=== PATIENT | male | born 1995 | race African-American/Black ===

== ENCOUNTER 2021-01-16 01:25 | Emergency (ER) | payer OTHER ==
[~2021-01-16] VITALS: Ht 172.7 cm; Wt 86.2 kg
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
--- NOTE | 2021-01-16 01:36 | NUR ---
at the bedside for eval.
--- NOTE | 2021-01-16 01:38 | NUR ---
EMT AT BEDSIDE FOR CLEANING
--- NOTE | 2021-01-16 01:40 | NUR ---
xray at bedside
[2021-01-16] MEDS ORDERED: TDAP [DIPH/PERTUSSIS/TET] 0.5 ML VIAL IM ONE ×2 (01:52→02:00)
--- NOTE | 2021-01-16 02:25 | NUR ---
at bedside for procedure
[2021-01-16] MEDS ORDERED: LIDOCAINE 0.5% HCL 50 ML VIAL ONE (02:26)
[2021-01-16] MEDS ORDERED: CEPH500C2 PO (02:36)
--- NOTE | 2021-01-16 02:37 | NUR ---
Patient discharged to home in stable condition. Written and verbal after care instructions given. Patient verbalizes understanding of instruction. Pt ambulatory with a steady gait
[2021-01-16 02:41] VITALS: BP 134/82
== END 2021-01-16 02:37 | disposition home or self-care (01) ==
LOC: ER 01:33
DX: S81.011A Laceration without foreign body, right knee, initial encounter (principal); F41.9 Anxiety disorder, unspecified; V09.9XXA Pedestrian injured in unspecified transport accident, initial encounter; Y93.89 Activity, other specified; Y92.89 Other specified places as the place of occurrence of the external cause; Y99.8 Other external cause status
CPT/HCPCS: 12002; 73564; 90471; 90715; 99283; J3490

== ENCOUNTER 2022-02-05 13:43 | Emergency (ER) | payer OTHER ==
[~2022-02-05] VITALS: Ht 172.7 cm; Wt 95.3 kg
[~2022-02-05 13:43] MED LIST: CEPH500C2 PO
[2022-02-05 13:49] VITALS: BP 120/63
--- NOTE | 2022-02-05 14:21 | NUR ---
SWAB FOR COVID19 SENT
[2022-02-05] MEDS ORDERED: TDAP [DIPH/PERTUSSIS/TET] 0.5 ML VIAL IM ONE ×2 (14:29→14:30)
[2022-02-05] MEDS ORDERED: LIDOCAINE HCL/PF 1% 30 ML VIAL TP ONE (14:30)
--- NOTE | 2022-02-05 15:34 | NUR ---
[id number]. Written and verbal after care instructions given. Patient verbalizes understanding of instruction.
== END 2022-02-05 15:35 ==
LOC: ER 13:47
DX: S51.012A Laceration without foreign body of left elbow, initial encounter (principal); S61.210A Laceration without foreign body of right index finger without damage to nail, initial encounter; W25.XXXA Contact with sharp glass, initial encounter; Y93.39 Activity, other involving climbing, rappelling and jumping off; Y92.89 Other specified places as the place of occurrence of the external cause; S90.852A Superficial foreign body, left foot, initial encounter; R05.9 Cough, unspecified; Z20.822 Contact with and (suspected) exposure to COVID-19
CPT/HCPCS: 12001; 73070; 87426; 90471; 90715; 99284; A6403; C9803; J3490